=== PATIENT | female | born 1990 | race Caucasian/White ===

== ENCOUNTER 2023-05-20 18:37 | Emergency (ER) | payer SELFPAY ==
[2023-05-20 18:42] VITALS: BP 129/88; PULSE 92; RESP 18; TEMP 36.6; O2SAT 98; BMI 29.3
--- NOTE | 2023-05-20 18:50 | ED_ITS ---
HPI - Nausea/Vomiting/Diarrhea General Chief complaint: Nausea/Vomiting/Diarrhea Stated complaint: vomiting 2 months Time Seen by Provider: 05/20/23 18:50 Source: patient Mode of arrival: walk-in History of Present Illness HPI Narrative: this patient walked here from [facility] to have treatment for nausea and vomiting. She is not ablei keep fluids down much over the last several days. She is . She has not seen an FIELD TECHNICIAN yet. She has one child many years ago and this 1st she's been in a while. She did extremely small amount of spotting today but is not having any abdominal cramping or pain or discomfort. She does not have any diarrhea. She took some by mouth Zofran to a friend. She's not had a urinary symptomatology such as frequency urgency dysuria or hematuria. She's not had back or flank pain. She's not had a fever. She's not on any antibiotics. She hasn't smoked marijuana since she found out she was over a month ago. Related Data Allergies Allergy/AdvReac Type Severity Reaction Status Date / Time No Known Drug Allergies Allergy Verified 05/20/23 18:47 Exam Narrative Exam Narrative: awake alert pleasant historian skin is warm and slightly moist. Cognition and mental status are normal she is a good historian. She denies any abdominal pain. Examination the abdomen there is no peritoneal findings guarding rebound or rigidity is no hepatosplenomegaly. She has no tenderness to palpation any place in the abdomen. The lower extremities show no evidence of any edema or swelling. Respiratory she has no wheezes rales or rhonchi. Heart sounds are normal with no murmur. HEENT shows airway to be normal. Ear nose and throat she has no complaints and appears normal on gross inspection. Constitutional Vital Signs, click to edit/add: Last Vital Signs Temp 97.9 F 05/20/23 18:42 Pulse 92 H 05/20/23 18:42 Resp 18 05/20/23 18:42 BP 129/88 05/20/23 18:42 Pulse Ox 98 05/20/23 18:42 O2 Del Method Room Air 05/20/23 18:42 Course Vital Signs Vital signs: Vital Signs Temperature 97.9 F 05/20/23 18:42 Pulse Rate 92 H 05/20/23 18:42 Respiratory Rate 18 05/20/23 18:42 Blood Pressure 129/88 05/20/23 18:42 Pulse Oximetry 98 05/20/23 18:42 Oxygen Delivery Method Room Air 05/20/23 18:42 Temperature 97.9 F 05/20/23 18:42 Pulse Rate 92 H 05/20/23 18:42 Respiratory Rate 18 05/20/23 18:42 Blood Pressure 129/88 05/20/23 18:42 Pulse Oximetry 98 05/20/23 18:42 Oxygen Delivery Method Room Air 05/20/23 18:42 MDM - Nausea/Vomiting/Diarrhea MDM Narrative Medical decision making narrative: patient presents with history of morning sickness 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 She [id number]. She'll need at least 1 L of fluids. We will rule out urinary tract infection I imbalance or renal dysfunction. She has not seen an FIELD TECHNICIAN yet and should be given the name of our local practitioners to follow up with if she is deemed suitable for outpatient management. She said her last period was in February. She is not really bleeding today and I don't believe she has to have an emergent ultrasound at this time. Case will be turned over to Dr. Vaca Discharge Plan Discharge Chief Complaint: Nausea/Vomiting/Diarrhea Clinical Impression: Hyperemesis gravidarum
--- NOTE | 2023-05-20 18:52 | PC.NURSE ---
pt is 2 months , unsure of exact date of LMP but it was in february. Pt states she has been nauseous and vomiting for about a month, getting worse. states she spotted a small bit yesterday and this morning, but not right now. Pt states she walked from [facility] to [facility].
[2023-05-20] MEDS: ONDANSETRON PF 4 MG/2 ML VIAL IV (19:04)
[2023-05-20] MEDS: 0.9 % SODIUM CHLORIDE 1,000 ML 999 ML IV (19:04)
[2023-05-20 19:36] LABS: Basophils Percent Auto 0.2 % (0.2-2.0); Eosinophils Absolute Auto 0.1 10^3/uL (0.0-0.7); Eosinophils Percent Auto 0.7 % (0.9-7.0); Hematocrit 36.7 % (36.0-48.0); Hemoglobin 12.8 g/dL (12.0-16.0); Immature Granulocytes Abs Auto 0.03 10^3/uL (0.00-0.03); Immature Granulocytes Pct Auto 0.3 % (0.0-0.5); Lymphocytes Absolute Auto 1.7 10^3/uL (1.2-3.8); Lymphocytes Percent Auto 14.1 % (20.5-60.0); Mean Corpuscular HGB Conc 34.9 g/dL (29.9-35.2); Mean Corpuscular Hemoglobin 33.2 pg (26.7-34.0); Mean Corpuscular Volume 95.3 fL (81.0-99.0); Mean Platelet Volume 10.4 fL (9.5-13.5); Monocytes Absolute Auto 0.5 10^3/uL (0.3-0.8); Neutrophils Absolute Auto 9.6 10^3/uL (1.4-6.5); Neutrophils Percent Auto 80.7 % (43.0-75.0); Platelet Count 262 10^3/uL (150-450); Red Blood Count 3.85 10^6/uL (4.20-5.40); White Blood Count 11.9 10^3/uL (4.0-11.0)
[2023-05-20 19:38] LABS: Bilirubin Urine NEGATIVE (NEGATIVE); Blood Urine NEGATIVE (NEGATIVE); Clarity Urine CLOUDY (CLEAR); Color Urine YELLOW (YELLOW); Glucose Urine UA NEGATIVE (NEGATIVE); Ketones Urine TRACE mg/dL (NEGATIVE); Leukocyte Esterase Urine NEGATIVE (NEGATIVE); Nitrite Urine NEGATIVE (NEGATIVE); Protein Urine TRACE mg/dL (NEG/TRACE); Specific Gravity Urine 1.025 (1.005-1.025)
[2023-05-20 19:47] LABS: Anion Gap 14.5; BUN Creatinine Ratio 18.3; Calcium 8.9 mg/dL (8.5-10.1); Carbon Dioxide 22.9 mmol/L (21.0-32.0); Chloride 101 mmol/L (98-107); Estimated GFR (African America >60 (>=60); Estimated GFR (Non-African Ame >60 (>=60); Glucose 86 mg/dL (74-106); Potassium 3.4 mmol/L (3.5-5.1); Sodium 135 mmol/L (136-145)
[2023-05-20 19:48] LABS: Urine Microscopic Indicated NO
== END 2023-05-20 20:53 | disposition home or self-care (01) ==
PROVIDERS: Emergency Medicine Emergency Medical Services; Emergency Provider Internal Medicine
DX: O21.0 Mild hyperemesis gravidarum (principal); Z3A.00 Weeks of gestation of pregnancy not specified
CPT/HCPCS: 36415; 80048; 81003; 85025; 96361; 96374; 99285

== ENCOUNTER 2023-06-26 12:26 | Outpatient (OUT) | payer MEDICAID, SELFPAY ==
--- NOTE | 2023-06-26 12:30 | US_ITS ---
[address] [address] Patient Name: DANA PINO MRN: [id number] date: 1990 Sex: F Assigned Patient Location: US Current Patient Location: Accession/Order Number: [id number] Exam Date: 06/26/2023 12:30 Report Date: 06/26/2023 17:24 At the request of: SARA SALOMON Procedure: US OB >= 14 weeks Fetus EXAMINATION: US OB >= 14 weeks Fetus HISTORY: MISSED MENSES COMPARISON: No relevant comparison available. FINDINGS: Heart Rate: 144.0 bpm Number: 1.0 Amniotic Fluid Volume: Subjectively normal BIOMETRY: BPD: 3.9 cm cm; 18 weeks 0 days HC: 14.2 cmcm; 17 weeks 3 days AC: 12.2 cm cm; 17 weeks 6 days FL: 2.5 cm cm; 17 weeks 3 days EFW: 203.7 grams FL/AC: 20.2 FL/BPD: 62.6 HC/AC: 1.2 GESTATIONAL AGE: Age by EDC: Unknown LMP NINOSKA by EDC: Age by US: 17 weeks 5 days NINOSKA by US: 11/29/2023 US/US OB >= 14 weeks Fetus IMPRESSION: 1. Single live intrauterine 17 weeks 5 days by today's ultrasound. Electronically authenticated by: OLGA DASILVA Date: 06/26/2023 17:24
== END 2023-06-26 12:27 | disposition home or self-care (01) ==
PROVIDERS: Visit Provider Obstetrics & Gynecology
DX: Z34.92 Encounter for supervision of normal pregnancy, unspecified, second trimester (principal); Z3A.17 17 weeks gestation of pregnancy
CPT/HCPCS: 76815

== ENCOUNTER 2023-07-23 12:20 | Outpatient (OUT) | payer MEDICAID, SELFPAY ==
[2023-07-23 12:53] LABS: Estimated Average Glucose 88 mg/dL; Glycohemoglobin A1C 4.7 % (4.5-6.2)
[2023-07-23 12:54] LABS: Basophils Percent Auto 0.3 % (0.2-2.0); Eosinophils Absolute Auto 0.1 10^3/uL (0.0-0.7); Eosinophils Percent Auto 1.2 % (0.9-7.0); Hematocrit 36.1 % (36.0-48.0); Hemoglobin 12.2 g/dL (12.0-16.0); Immature Granulocytes Abs Auto 0.04 10^3/uL (0.00-0.03); Immature Granulocytes Pct Auto 0.3 % (0.0-0.5); Lymphocytes Absolute Auto 1.4 10^3/uL (1.2-3.8); Lymphocytes Percent Auto 12.3 % (20.5-60.0); Mean Corpuscular HGB Conc 33.8 g/dL (29.9-35.2); Mean Corpuscular Hemoglobin 33.1 pg (26.7-34.0); Mean Corpuscular Volume 97.8 fL (81.0-99.0); Mean Platelet Volume 9.5 fL (9.5-13.5); Monocytes Absolute Auto 0.5 10^3/uL (0.3-0.8); Monocytes Percent Auto 4.2 % (1.7-12.0); Neutrophils Absolute Auto 9.6 10^3/uL (1.4-6.5); Neutrophils Percent Auto 81.7 % (43.0-75.0); Platelet Count 275 10^3/uL (150-450); Red Blood Count 3.69 10^6/uL (4.20-5.40); Red Cell Distribution Width 12.2 % (11.0-15.0); White Blood Count 11.7 10^3/uL (4.0-11.0)
[2023-07-23 13:18] LABS: Thyroid Stimulating Hormone 0.774 uIU/mL (0.358-3.740)
[2023-07-24 08:11] LABS: HIV Ab/p24 Ag Screen Non Reactive (Non Reactive)
[2023-07-24 09:11] LABS: Rubella Antibodies, IgG 5.18 index (Immune >0.99)
[2023-07-24 11:12] LABS: Rapid Plasma Reagin, Quant Non Reactive titer (NonRea<1:1)
[2023-07-24 12:12] LABS: HBsAg Screen Negative (Negative); HCV Ab Non Reactive (Non Reactive)
--- OUTSIDE RECORDS SUMMARY | 2023-09-02 14:14 | XMS_ITS | CCD ---
Author Name Unknown Address [address] [place] [address] [address] [place] [address] Organization [facility] Care Team Providers Care Police Stenographer Name Role Phone IRIS ETHAN Primary Care Unavailable EARNESTINE WAKEFIELD Admitting Unavailable ASHU, EARNESTINE Fleming Attending Unavailable EARNESTINE WAKEFIELD Consulting Unavailable ETHAN SIMMONS Primary Care Unavailable PAY, KALI Admitting Unavailable PAY, KALI Attending Unavailable PAY, KALI Consulting Unavailable LE, FLETCHER Admitting Unavailable LE, FLETCHER Attending Unavailable REQUEST, NONE LISTED Primary Care Unavailable JOVANY TAVERAS Consulting Unavailable SIGIFREDO, FLETCHER Consulting Unavailable ASRA SALOMON Attending Unavailable Problems Active Problems Problem Classification Problem Date Documented Da te Episodic/Chronic External cause codes: Natural/environment (1 source) Other and unspecified overexertion or strenuous movements or postures, initial encounter; Translations: [OTH AND UNS OVREXRT/STRN MVMT/POS INT] Onset: 01-26-2019 Other connective tissue disease (3 sources) Pain in left foot; Translations: [PAIN IN LEFT FOOT] Onset: 04-30-2019 Episodic Other connective tissue disease (1 source) Calcaneal spur, right foot; Translations: [CALCANEAL SPUR RIGHT FOOT] Onset: 05-04-2019 Episodic Other connective tissue disease (1 source) Calcaneal spur, left foot; Translations: [CALCANEAL SPUR LEFT FOOT] Onset: 05-04-2019 Episodic Other nervous system disorders (1 source) Paresthesia of skin; Translations: [PARESTHESIA OF SKIN] Onset: 05-04-2019 Episodic Substance-related disorders (1 source) Nicotine dependence, cigarettes, uncomplicated; Translations: [NICOTINE DEPEND CIGARETTES UNCOMP] Onset: 01-26-2019 Chronic Past or Other Problems Problem Classification Problem Date Documented Date Episodic/Chronic Other ear and sense organ disorders (3 sources) Otalgia, right ear; Translations: [OTALGIA RIGHT EAR] Onset: 12-23-2018 Episodic Other non-traumatic joint disorders (4 sources) Pain in left shoulder; Translations: [PAIN IN LEFT SHOULDER] Onset: 01-22-2019 Episodic Otitis media and related conditions (1 source) Unspecified nonsuppurative otitis media, right ear; Translations: [UNS NONSUPPURATIVE OM RT EAR] Onset: 12-24-2018 Episodic Sprains and strains (1 source) Sprain of left acromioclavicular joint, initial encounter; Translations: [SPRAIN LEFT AC JNT INITIAL ENC] Onset: 01-26-2019 Episodic Results Test Name Value Interpretation Reference Range Facil ity POINT OF CARE GLUCOSEon 04-15 Glucose [Mass/Vol] 108 mg/dL Critically high 74-106 T [facility] Comment on above: Performed By: #### P OCGLUC #### [facility] [address] [address] Ney Ayon XR FOOT ANGELA MIN 3 VIEWSon Bilirubin [Mass/Vol] Patient: DARIA PINO Exam Date: 04/30/2019 : 1990 Gender:F Ordering : DR. FLETCHER MEI D.O. Admission #: [id number] Family : Order #: [id number] CLICK HERE TO VIEW EXAM RADIOLOGY REPORT PROCEDURE: RADIOGRAPH FOOT BILATERAL MIN 3 VIEWS COMPARISON: None. INDICATIONS: Chronic bilateral foot pain, no injury RIGHT FINDINGS: BONES: Tiny benign-appearing bone cysts within the head of the 1st metatarsal. No significant arthropathy or acute abnormality. SOFT TISSUES: Negative. No visible soft tissue swelling. OTHER: Negative. LEFT FINDINGS: BONES: Small calcaneal plantar spur No significant arthropathy or acute abnormality SOFT TISSUES: Negative. No visible soft tissue swelling OTHER: Negative. RIGHT CONCLUSION: No acute bone abnormality or significant degenerative changes to account for the patient's symptoms. LEFT CONCLUSION: No acute bone abnormality or significant degenerative changes to account for the patient's symptoms. Dictated by: Jovany Taveras M.D. on 04/30/2019 at 08:28 Approved by: Jovany Taveras M.D. on 04/30/2019 at 08:30 Normal [facility] Encounters Encounter Date Encounter Type Care Provider Facility Start: 2023 End: 2023 ambulatory SARA SALOMON Not Available Start: 04-30-2019 End: 04-30-2019 Patient encounter procedure FLETCHER MEI Facility:[facility] Start: 01-22-2019 End: 01-22-2019 Patient encounter procedure ETHAN SIMMONS Facility:[facility] Start: 12-23-2018 End: 12-23-2018 Patient encounter procedure ETHAN SIMMONS Facility:[facility] Payers Date Payer Category Payer Medicaid [id number] 1990 Unknown [id number] [id number] [id number] 1990 Unknown [id number] 2.16.84 [id number] 1990 Unknown [id number] 2.16.84 [id number] 1990 Unknown [id number] 1959 Self-pay [id number] 1959 Self-pay Summary Purpose Family History No Family History Records FoundNo Family History Records Found Advance Directives No Advanced Directives Records FoundNo Advanced Directives Records Found Additional Source Comments INFORMATION SOURCE (unrecogn ized section and content) DATE CREATED AUTHOR 05/04/2019 [facility] DATE CREATED AUTHOR 'S LESLIEIZ ATCARMEN 08/23/2023 [facility] EPIC FOR RECORDS PERTAINING TO PATIENTS WHO ARE OR HAVE BEEN ENROLLED IN A CHEMICAL DEPENDENCY/SUBSTANCEABUSE PROGRAM, SOME INFORMATION MAY BE OMITTED. This clinical summary was aggregated from multiple sources. Caution should be exercised in using it in the provision of clinical care. This summary normalizes information from multiple sources, and as a consequence, information in this document may materially change the coding, format and clinical context of patient data. In addition, data may be omitted in some cases. CLINICAL DECISIONS SHOULD BE BASED ON THE PRIMARY CLINICAL RECORDS. [facility]. provides no warranty or guarantee of the accuracy or completeness of information in this document.
== END 2023-07-23 12:21 | disposition home or self-care (01) ==
LOC: LAB 12:23
PROVIDERS: Visit Provider Obstetrics & Gynecology
DX: N92.6 Irregular menstruation, unspecified (principal)
CPT/HCPCS: 36415; 83036; 84443; 85025; 86592; 86762; 86803; 86850; 86900; 86901; 87086; 87340; 87389

== ENCOUNTER 2023-07-24 08:46 | Outpatient (OUT) | payer MEDICAID, SELFPAY ==
--- NOTE | 2023-07-24 08:47 | US_ITS ---
[address] [address] Patient Name: DANA PINO MRN: [id number] date: 1990 Sex: F Assigned Patient Location: US Current Patient Location: Accession/Order Number: [id number] Exam Date: 07/24/2023 08:48 Report Date: 07/24/2023 22:37 At the request of: SARA SALOMON Procedure: US OB anatomy EXAMINATION: US OB anatomy, US OB cervical length HISTORY: ANATOMY COMPARISON: No relevant comparison available. TECHNIQUE: Transabdominal sonographic examination was performed for obstetrical and evaluation. FINDINGS: Number: 1 Heart Rate: 145.0 bpm H.B. /min Amniotic Fluid Volume: Subjectively normal Placental Location: POSTERIOR with lower margin 3.9 cm from os Cervix Length: 4.4 cm; closed. ANATOMY: Normal Structures -cerebellum, choroid plexus, cisterna magna, lateral cerebral ventricles, orbits, midline falx, hard palate, four-chamber heart, RVOT, LVOT, stomach, kidneys, bladder, umbilical cord insertion into abdomen, three-vessel cord, cervical spine, thoracic spine, lumbar spine, sacral spine, right upper extremity, left upper extremity, right lower extremity, left lower extremity. SUBOPTIMALLY SEEN: None ABNORMALITIES: None BIOMETRY: BPD: 4.6 cm 19 weeks 5 days ; < 3% HC: 18.0 cm 20 weeks 3 days; 3% AC: 16.3 cm 21 weeks 3 days; 32% FL: 3.6 cm 21 weeks 2 days ; 25% EFW:405.2 grams; 20% FL/AC: 21.8 FL/BPD: 78.2 HC/AC: 1.1 GESTATIONAL AGE: Age by EDC: 21 weeks 5 days NINOSKA by EDC: 11/29/2023 Age by current US: 20 weeks 5 days NINOSKA by current US: 12/06/2023 US/US OB anatomy IMPRESSION: 1. Single live intrauterine with growth detailed above. 2. BPD and HC are < or equal to 3rd percentile. Electronically authenticated by: OLGA DASILVA Date: 07/24/2023 22:37
--- NOTE | 2023-07-24 08:47 | US_ITS ---
[address] [address] Patient Name: DANA PINO MRN: [id number] date: 1990 Sex: F Assigned Patient Location: US Current Patient Location: Accession/Order Number: [id number] Exam Date: 07/24/2023 08:48 Report Date: 07/24/2023 22:37 At the request of: SARA SALOMON Procedure: US OB cervical length EXAMINATION: US OB anatomy, US OB cervical length HISTORY: ANATOMY COMPARISON: No relevant comparison available. TECHNIQUE: Transabdominal sonographic examination was performed for obstetrical and evaluation. FINDINGS: Number: 1 Heart Rate: 145.0 bpm H.B. /min Amniotic Fluid Volume: Subjectively normal Placental Location: POSTERIOR with lower margin 3.9 cm from os Cervix Length: 4.4 cm; closed. ANATOMY: Normal Structures -cerebellum, choroid plexus, cisterna magna, lateral cerebral ventricles, orbits, midline falx, hard palate, four-chamber heart, RVOT, LVOT, stomach, kidneys, bladder, umbilical cord insertion into abdomen, three-vessel cord, cervical spine, thoracic spine, lumbar spine, sacral spine, right upper extremity, left upper extremity, right lower extremity, left lower extremity. SUBOPTIMALLY SEEN: None ABNORMALITIES: None BIOMETRY: BPD: 4.6 cm 19 weeks 5 days ; < 3% HC: 18.0 cm 20 weeks 3 days; 3% AC: 16.3 cm 21 weeks 3 days; 32% FL: 3.6 cm 21 weeks 2 days ; 25% EFW:405.2 grams; 20% FL/AC: 21.8 FL/BPD: 78.2 HC/AC: 1.1 GESTATIONAL AGE: Age by EDC: 21 weeks 5 days NINOSKA by EDC: 11/29/2023 Age by current US: 20 weeks 5 days NINOSKA by current US: 12/06/2023 US/US OB cervical length IMPRESSION: 1. Single live intrauterine with growth detailed above. 2. BPD and HC are < or equal to 3rd percentile. Electronically authenticated by: OLGA DASILVA Date: 07/24/2023 22:37
== END 2023-07-24 08:47 | disposition home or self-care (01) ==
PROVIDERS: Visit Provider Obstetrics & Gynecology
DX: Z36.89 Encounter for other specified antenatal screening (principal); Z3A.21 21 weeks gestation of pregnancy
CPT/HCPCS: 76805; 76817

== ENCOUNTER 2023-08-02 14:50 | Outpatient (OUT) | payer MEDICAID, SELFPAY ==
[2023-08-02 15:14] VITALS: BP 108/72; PULSE 70
[2023-08-02] MEDS: ONDANSETRON 4 MG RAPDIS TABLET SL (16:26)
[2023-08-02 16:40] LABS: Bilirubin Urine NEGATIVE (NEGATIVE); Blood Urine SMALL (NEGATIVE); Color Urine LT. YELLOW (YELLOW); Glucose Urine UA NEGATIVE (NEGATIVE); Ketones Urine NEGATIVE (NEGATIVE); Leukocyte Esterase Urine NEGATIVE (NEGATIVE); Nitrite Urine NEGATIVE (NEGATIVE); Protein Urine NEGATIVE (NEG/TRACE); Urobilinogen Urine 0.2 EU/dL (0.2-1.0)
[2023-08-02 16:42] LABS: Clarity Urine SLIGHTLY CLOUDY (CLEAR); Urine Microscopic Indicated YES
[2023-08-02 16:47] LABS: Bacteria Urine NONE SEEN #/HPF (NONE SEEN); Cast Seen? NONE SEEN #/LPF (NONE SEEN); Crystals Seen? None Seen #/HPF (None Seen); Mucus Urine NONE SEEN (NONE SEEN); RBC Urine 0-2 #/HPF (0-2); Squamous Epithelial Cell Urine RARE #/LPF (NONE/RARE); WBC Urine NONE SEEN #/HPF (NONE SEEN)
[2023-08-02 16:48] LABS: Amorphous Sediment Urine MODERATE; Urine Culture Indicated NO
--- NOTE | 2023-08-02 16:55 | PC.NURSE ---
1650- Instructed patient to bulk picker Zofran from [facility] that was called in for her. Questions answered, patient states understanding.
== END 2023-08-02 16:55 | disposition home or self-care (01) ==
LOC: FBCO 14:53 → FBC 14:58
PROVIDERS: Visit Provider Obstetrics & Gynecology
DX: O26.899 Other specified pregnancy related conditions, unspecified trimester (principal); R42 Dizziness and giddiness; O21.0 Mild hyperemesis gravidarum; Z3A.00 Weeks of gestation of pregnancy not specified
CPT/HCPCS: 59025; 81001

== ENCOUNTER 2023-08-21 19:59 | Outpatient (REF) | payer MEDICAID, SELFPAY ==
[2023-08-26 17:09] LABS: Age Gdln ACOG Testing Note (.); HPV Aptima Negative (Negative); IGP, Aptima HPV, rfx 16/18,45 Note (.)
== END 2023-08-21 20:00 | disposition home or self-care (01) ==
LOC: LAB 19:59
PROVIDERS: Visit Provider Obstetrics & Gynecology
DX: Z01.419 Encounter for gynecological examination (general) (routine) without abnormal findings (principal)
CPT/HCPCS: 87624; G0145

== ENCOUNTER 2023-09-12 13:02 | Outpatient (OUT) | payer MEDICAID, SELFPAY ==
--- OUTSIDE RECORDS SUMMARY | 2023-09-12 13:05 | XMS_ITS | CCD ---
Author Name Unknown Address [address] [place] [address] [address] [place] [address] Organization [facility] Care Team Providers Care Accounting Methods Analyst Name Role Phone ETHAN SIMMONS Primary Care Unavailable EARNESTINE WAKEFIELD Admitting Unavailable ASHU, EARNESTINE Fleming Attending Unavailable ASHU, EARNESTINE Fleming Consulting Unavailable ETHAN SIMMONS Primary Care Unavailable PAY, KALI Admitting Unavailable PAY, KALI Attending Unavailable PAY, KALI Consulting Unavailable LE, FLETCHER Admitting Unavailable LE, FLETCHER Attending Unavailable REQUEST, NONE LISTED Primary Care Unavailable JOVANY TAVERAS Consulting Unavailable SIGIFREDO, FLETCHER Consulting Unavailable SARA SALOMON Attending Unavailable NAZARIO LEOS Attending Unavailable Problems Active Problems Problem Classification [...] Test Name Value Interpretation Reference Range Facil it POINT OF CARE GLUCOSEon 04-15 Glucose [Mass/Vol] 108 mg/dL Critically high 74-106 [facility] Comment on above: Performed By: #### P OCGLUC #### [facility] [address] [place], [place] [address] Ney Ayon XR FOOT ANGELA MIN 3 VIEWSon Bilirubin [Mass/Vol] Patient: DANA PINO Exam Date: 04/30/2019 : 1990 Gender:F Ordering : DR. FLETCHER MEI D.O. Admission #: [id number] Family : Order #: [id number] CLICK HERE TO VIEW EXAM RADIOLOGY REPORT [...] on 04/30/2019 at 08:30 Normal [facility] Encounters Encounter Date Encounter Type Care Provider Facility Start: 09-04-2023 End: 09-04-2023 ambulatory NAZARIO LEOS Not Available Start: 2023 End: 2023 ambulatory SARA SALOMON Not Available Start: 04-30-2019 End: 04-30-2019 Patient encounter procedure FLETCHER MEI Facility:[facility] Start: 01-22-2019 End: 01-22-2019 Patient encounter procedure ETHAN SIMMONS Facility:[facility] Start: 12-23-2018 End: 12-23-2018 Patient encounter procedure ETHAN PAVLOCK Facility:[facility]1 Payers Date Payer Category Payer Medicaid [id number] 1990 Unknown [id number] 2.16.84 [id number] 1990 Unknown [id number] 2.16.84 [id number] 1990 Unknown [id number] 2.16.84 [id number] 1990 Unknown [id number] 1990 Unknown [id number] 1959 Self-pay [id number] 1959 Self-pay Summary Purpose Family History No Family History Records FoundNo Family History Records Found Advance Directives No Advanced Directives Records FoundNo Advanced Directives Records Found Additional Source Comments INFORMATION SOURCE (unrecogn ized section and content) DATE CREATED AUTHOR 05/04/2019 [facility] DATE CREATED AUTHOR AUTHOR'S ORGANIZ ATION 09/05/2023 [facility] EPIC FOR RECORDS PERTAINING TO PATIENTS [...] BE BASED ON THE PRIMARY CLINICAL RECORDS. [facility]. provides no warranty or guarantee of the accuracy or completeness of information in this document.
[2023-09-12 13:18] LABS: Glucose Fasting 81 mg/dL (74-106)
[2023-09-12 14:32] LABS: Glucose 1 Hour 155 mg/dL
[2023-09-12 15:36] LABS: Glucose 2 Hour 143 mg/dL
[2023-09-12 16:34] LABS: Glucose 3 Hour 143 mg/dL
== END 2023-09-12 13:03 | disposition home or self-care (01) ==
LOC: LAB 13:02
PROVIDERS: Visit Provider Obstetrics & Gynecology
DX: E74.39 Other disorders of intestinal carbohydrate absorption (principal)
CPT/HCPCS: 36415; 82951; 82952

== ENCOUNTER 2023-10-22 14:34 | Outpatient (OUT) | payer MEDICAID, SELFPAY ==
--- NOTE | 2023-10-22 14:36 | US_ITS ---
[address] [address] Patient Name: DANA PINO MRN: [id number] date: 1990 Sex: F Assigned Patient Location: [facility] Current Patient Location: [facility] Accession/Order Number: [id number] Exam Date: 10/22/2023 14:36 Report Date: 10/22/2023 16:08 At the request of: SARA SALOMON Procedure: US OB growth EXAMINATION: US OB growth HISTORY: LGA COMPARISON: 07/24/2023 FINDINGS: Heart Rate: 127.0 bpm Amniotic Fluid Volume: 10.9 cm Number: 1.0 Position: Cephalic presentation, longitudinal lie Maximum Vertical Pocket: 2.2 cm cm 2.6 cm cm 4.4 cm cm 1.7 cm cm BIOMETRY: BPD: 8.5 cm cm; 34 weeks 0 days; 34% HC: 29.9 cmcm; 33 weeks 1 days < 3% AC: 30.0 cm cm; 34 weeks 0 days, 36% FL: 6.7 cm cm; 34 weeks 3 days; 38.4 % % EFW: 2327.3 grams FL/AC: 22.4 FL/BPD: 79.3 HC/AC: 1.0 GESTATIONAL AGE: Age by EDC: 34 weeks 4 days NINOSKA by EDC: 11/29/2023 Age by US: 33 weeks 6 days NINOSKA by US: 12/04/2023 US/US OB growth IMPRESSION: Head circumference less than the 3rd percentile, otherwise normal interval growth Electronically authenticated by: CARLOS MAZARIEGOS Date: 10/22/2023 16:08
--- OUTSIDE RECORDS SUMMARY | 2023-10-22 14:41 | XMS_ITS | CCD ---
Author Name Unknown Address [address] [place] [address] [address] [place] [address] Organization [facility] Care Team Providers Care Plodder Operator Name Role Phone ETHAN SIMMONS Primary Care Unavailable EARNESTINE WAKEFIELD Admitting Unavailable ASHU, EARNESTINE Fleming Attending Unavailable EARNESTINE WAKEFIELD Consulting Unavailable ETHAN SIMMONS Primary Care Unavailable PAY, KALI Admitting Unavailable PAY, KALI Attending Unavailable PAY, KALI Consulting Unavailable LE, FLETCHER Admitting Unavailable LE, FLETCHER Attending Unavailable REQUEST, NONE LISTED Primary Care Unavailable JOVANY TAVERAS Consulting Unavailable SIGIFREDO, FLETCHER Consulting Unavailable NAZARIO LEOS Attending Unavailable UMM, SARA Attending Unavailable UMM, SARA Attending Unavailable NAZARIO LEOS Attending Unavailable Problems [...] Glucose [Mass/Vol] 108 mg/dL Critically high 74-106 [facility] Comment on above: Performed By: #### P OCGLUC #### [facility] [address] [address] [place] Ayon XR FOOT ANGELA MIN 3 VIEWSon Bilirubin [Mass/Vol] Patient: DANA PINO Exam Date: 04/30/2019 : 1990 Gender:F Ordering : DR. FLETCHER MEI D.O. Admission #: [id number] Family : Order #: [id number] CLICK HERE TO VIEW EXAM RADIOLOGY REPORT [...] Taveras M.D. on 04/30/2019 at 08:30 Normal [facility] Encounters Encounter Date Encounter Type Care Provider Facility Start: 10-06-2023 End: 10-06-2023 ambulatory SARA SALOMON Not Available Start: 09-18-2023 End: 09-18-2023 ambulatory NAZARIO LEOS Not Available Start: 09-04-2023 End: 09-04-2023 ambulatory NAZARIO LEOS Not Available Start: 2023 End: 2023 ambulatory SARA SALOMON Not Available Start: 04-30-2019 End: 04-30-2019 Patient encounter procedure FLETCHER MEI Facility:[facility] Start: 01-22-2019 End: 01-22-2019 Patient encounter procedure MAX PAVLOCK Facility:[facility] Start: 12-23-2018 End: 12-23-2018 Patient encounter procedure MAX PAVLOCK Facility:[facility]1 Payers Date Payer Category Payer Medicaid [id number] 1990 Unknown [id number] 2.16.84 [id number] 1990 Unknown [id number] 2.16.84 [id number] 1990 Unknown [id number] 2.16.84 [id number] 1990 Unknown [id number] 2.16.84 [id number] 1990 Unknown [id number] 2.16.840 .[id number] 1990 Unknown [id number] 2.16.840 .[id number] 1990 Unknown [id number] 1959 Self-pay [id number] 1959 Self-pay Summary Purpose Family History No Family History Records FoundNo Family History Records Found Advance Directives No Advanced Directives Records FoundNo Advanced Directives Records Found Additional Source Comments INFORMATION SOURCE (unrecogn ized section and content) DATE CREATED AUTHOR 05/04/2019 [facility] DATE CREATED AUTHOR AUTHOR'S ORGANIZ ATION 10/07/[address] [facility] FOR RECORDS PERTAINING TO PATIENTS WHO ARE [...] BE BASED ON THE PRIMARY CLINICAL RECORDS. [facility]. provides no warranty or guarantee of the accuracy or completeness of information in this document.
== END 2023-10-22 14:35 | disposition home or self-care (01) ==
LOC: NOMS 14:35
PROVIDERS: Visit Provider Obstetrics & Gynecology
DX: O36.63X1 Maternal care for excessive fetal growth, third trimester, fetus 1 (principal); Z3A.34 34 weeks gestation of pregnancy
CPT/HCPCS: 76816

== ENCOUNTER 2023-11-05 | Outpatient (REF) | payer MEDICAID, SELFPAY ==
--- OUTSIDE RECORDS SUMMARY | 2023-11-06 10:26 | XMS_ITS | CCD ---
Author Name Unknown Address [facility] [address] [place] [id number] Organization [facility] Care Team Providers Care Pai Gow Manager Name Role Phone ETHAN SIMMONS Primary Care Unavailable EARNESTINE WAKEFIELD Admitting Unavailable ASHU, EARNESTINE Fleming Attending Unavailable ASHU, EARNESTINE Fleming Consulting Unavailable ETHAN SIMMONS Primary Care Unavailable PAY, KALI Admitting Unavailable PAY, KALI Attending Unavailable PAY, KALI Consulting Unavailable SIGIFREDO, FLETCHER Admitting Unavailable LE, FLETCHER Attending Unavailable REQUEST, NONE LISTED Primary Care Unavailable JOVANY TAVERAS Consulting Unavailable SIGIFREDO, FLETCHER Consulting Unavailable CRYS LEOS Attending Unavailable SARA SALOMON Attending Unavailable CRYS LEOS Attending Unavailable UMM, SARA Attending Unavailable CRYS LEOS Attending Unavailable Unavailable Primary Care Provider Unavailabl e Medications Current Medications Medication Drug Class(es) Dates Sig (Normalized) Sig (Original) metoclopramide 10 mg oral tablet (2 sources) Dopamine-2 Receptor Antagonist Start: 09-18-2023 End: 12-17-2023 metoclopramide (Reglan) 10 MG tablet Indications: Nausea Take 1 tablet (10 mg) by mouth in the morning and 1 tablet (10 mg) at noon and 1 tablet (10 mg) in the evening. Take before meals. Take 1 tablet by mouth 30 minutes prior to meals 3 times daily as needed for nausea.. 90 tablet 2 09/18/2023 12/17/2023 Active ondansetron 4 mg disintegrating oral tablet (2 sources) Serotonin-3 Receptor Antagonist Start: 09-18-2023 ondansetron ODT (Zofran-ODT) 4 MG disintegrating tablet Indications: Nausea DISSOLVE 1 TABLET ON THE TONGUE EVERY 6 HOURS NEEDED FOR NAUSEA 20 tablet 3 09/18/2023 Active MV-Min-Fe Fum-FA-DHA ( 1 PO) (2 sources) MV-Min- Fe Fum-FA-DHA ( 1 PO) Take by mouth. 0 Active promethazine hydrochloride 25 mg oral tablet (2 sources) Phenothiazine Start: 05-21-2023 promethazine (Phenergan) 25 MG tablet TAKE 1 TABLET 4 TIMES A DAY NEEDED 0 05/21/2023 Active Completed/Discontinued Medications Medication Drug Class(es) Dates Sig (Normalized) Sig (Original) cyclobenzaprine hydrochloride 10 mg oral tablet (2 sources) Muscle Relaxant Start: 2023 End: 10-22-2023 take 0.5 tablet by mouth three times daily as needed for muscle spasms cyclobenzaprine (Flexeril) 10 MG tablet Indications: Chronic bilateral low back pain without sciatica Take 0.5 tablets (5 mg) by mouth 3 (three) times a day as needed for muscle spasms for up to 10 days 15 tablet 0 2023 10/22/2023 Discontinued Problems Active Problems Problem Classification Problem Date [...] Translations: [PARESTHESIA OF SKIN] Onset: 05-04-2019 Episodic Other and delivery including normal (2 sources) Third trimester ; Translations: [Encounter for supervision of normal , unspecified, third trimester] 10-17-2023 Episodic Substance-related disorders (1 source) Nicotine dependence, [...] Name Value Interpretation Reference Range Facil ity Urinalysis macro (dipstick) panel (U)on 10-22-2023 Bilirubin, UA Negative Negative - 4(70) +++ mg/dL [facility] Blood, UA Negative Negative - 50 Junior/mcL [facility] Clarity, UA Clear [facility], UA Yellow [facility] Glucose, UA Negative Negative - 1999(110) ++++ mg/dL [facility] Interpretation and review of laboratory results Abnormal [facility] Ketones, UA Negative Negative - 160(16) ++++ mg/dL [facility] Leukocytes, UA Negative Negative - 500+++ Juli/mcL [facility] Nitrite, UA Negative Negative - Positive [facility] pH, UA 7.0 5 - 9 [facility] Protein, UA Trace Negative - 1999(20) ++++ mg/dL [facility] Spec Grav, UA 1.025 1 - 1.03 [facility] care Urobilinogen, UA 1.0 0.2 - 12 [facility]dL [facility] POINT OF CARE GLUCOSEon 04-15 Glucose [Mass/Vol] 108 mg/dL Critically high 74-106 [facility] Comment on above: Performed By: #### P OCGLUC #### [facility] [address] [address] Ney Ayon XR FOOT ANGELA MIN 3 VIEWSon Bilirubin [Mass/Vol] Patient: DANA JONES Exam Date: 04/30/2019 : 1990 Gender:F Ordering : DR. FLETCHER MEI D.O. Admission #: [id number] Family : Order #: [id number] CLICK HERE TO VIEW EXAM RADIOLOGY REPORT [...] Taveras M.D. on 04/30/2019 at 08:30 Normal [facility] Vital Signs Date Time Vital Sign Value Performing Clinician Faci lity 10-22-2023 15:07-0500 Body mass index (BMI) [Ratio] 32.75 kg/m2 Crys BUSTAMANTE Work Phone: [facility] 10-22-2023 15:07-0500 Body weight 89.27 kg Crys BUSTAMANTE Work Phone: [facility] 10-22-2023 15:07-0500 Diastolic blood pressure 60 mm[Hg] Crys BUSTAMANTE Work Phone: [facility] 10-22-2023 15:07-0500 Systolic blood pressure 120 mm[Hg] Crys BUSTAMANTE Work Phone: [facility] Healthcare Encounters Encounter Date Encounter Type Care Provider Facility Start: 10-22-2023 End: 10-22-2023 ambulatory CRYS LEOS Not Available Start: 10-22-2023 End: 10-22-2023 Office outpatient visit 15 minutes Crys BUSTAMANTE Work Phone: [facility] Comment on above: Third trimester preg jessica Start: 10-06-2023 End: 10-06-2023 ambulatory SARA UMM Not Available Start: 09-18-2023 End: 09-18-2023 ambulatory CRYS LEOS Not Available Start: 09-04-2023 End: 09-04-2023 ambulatory CRYS LEOS Not Available Start: 2023 End: 2023 ambulatory SARA HERNANDEZO Not Available Start: 04-30-2019 End: 04-30-2019 Patient encounter procedure FLETCHER MEI Facility:[facility]1 Start: 01-22-2019 End: 01-22-2019 Patient encounter procedure MAX PAVMATILDE Facility:[facility]1 Start: 12-23-2018 End: 12-23-2018 Patient encounter procedure MAX PAVLOCK Facility:[facility]1 Procedures Date Procedure Procedure Detail Performing Clinician Start: 10-22-2023 Urnls dip stick/tabl et rgnt non-auto w/o micrscp Crys Leos PA Work Phone: Payers Date Payer Category Payer Medicaid [id number] 2023 Medicaid [employer] [place] [employer] [place] [id number] 2023-Present [address] [address] [place] [address] [id number] 1990 Unknown [id number] 1990 Unknown [id number] 1990 Unknown [id number] [id number] 1990 Unknown [id number] 2.16.840.1.362977.3.579.2.1259 1990 Unknown [id number] 2.16.840.1.821832.3.579.2.1259 1990 Unknown [id number] 2.16.840.1.075140.3.579.2.1259 1990 Unknown [id number] 1990 Unknown [id number] 1959 Self-pay [id number] 1959 Self-pay Social History Date Type Detail Facility Start: 07-11-2023 Tobacco smoking stat [facility] Never smoked tobacco [facility] Start: 10-22-2023 Alcohol intake Lifetime non-d norberto (finding) [facility] Start: 07-11-2023 History of Social function [facility] Start: 07-11-2023 Tobacco use panel [facility] Start: 03-08-2023 [facility] Start: 1990 Sex Assigned At Not on file [facility] History of Present illness Narrative 10-22-2023 DIANNA Sanchez - 10/22/2023 2:50 PM EST Note Date & Type Note Facility 10-22-2023 History of Presen t illness Narrative Reason for Appointment: Patient ID: Dana Jones is a 33 y.o. female who presents for Routine Visit Patient presents today for Return OB appointment. Current Medications: has a current medication list which includes the following prescription(s): metoclopramide, ondansetron odt, mv-min-fe fum-fa-dha, and promethazine. Medical History: Active Ambulatory Problems Diagnosis Date Noted No Active Ambulatory Problems Resolved Ambulatory Problems Diagnosis Date Noted No Resolved Ambulatory Problems Past Medical History: Diagnosis Date Asthma ([facility]) Family History Problem Relation Name Age of Onset Kidney failure Mother Pyloric stenosis Nephew Social History Tobacco Use Smoking status: Never Smokeless tobacco: Not on file Substance Use Topics Alcohol use: Never Drug use: Not on file Past Surgical History: Procedure Laterality Date HERNIA REPAIR No Known Allergies Review of Systems: Review of Systems Constitutional: Negative. HENT: Negative. Eyes: Negative. Respiratory: Negative. Cardiovascular: Negative. Gastrointestinal: Negative. Genitourinary: Negative. Musculoskeletal: Negative. Skin: Negative. Neurological: Negative. All other systems reviewed and are negative. Hematological: Negative. Endocrine: Negative. Allergic/Immunologic: Negative. Objective Physical Exam Constitutional: Appearance: Normal appearance. She is normal weight. HENT: Head: Normocephalic. Cardiovascular: Rate and Rhythm: Normal rate. Pulses: Normal pulses. Pulmonary: Effort: Pulmonary effort is normal. Breath sounds: Normal breath sounds. Abdominal: Palpations: Abdomen is soft. Musculoskeletal: General: Normal range of motion. Neurological: General: No focal deficit present. Mental Status: She is alert and oriented to person, place, and time. Psychiatric: Mood and Affect: Mood normal. Behavior: Behavior normal. Thought Content: Thought content normal. Judgment: Judgment normal. Vitals and nursing note reviewed. Vitals: Estimated body mass index is 32.75 kg/m as calculated from the following: Height as of 02/18/22: 5' 5 . Weight as of this encounter: 196 lb 12.8 oz. BP: 120/60 No LMP recorded. Patient is . Assessment/Plan Encounter Diagnosis Name Primary? Third trimester Patient presents today for a routine obstetrics appointment. Patient is currently 34w4d with a Estimated Date of Delivery: 11/29/23. Patient presents today for a routine obstetrics appointment. Patient is currently 34w4d . Patient states she is doing well but has complaints of being tired due to current . Patient has verbalizes frequent movement. labor precautions was discussed/given and patient was instructed to perform kick counts three times a day. Follow Up: Patient is to return to office in 2 week for routine OB appointment. Documented by DIANNA Sanchez on behalf of: DIANNA Sanchez documented in this encounter [facility] Evaluation note Note Date & Type Note Facility Evaluation note Diagnosis Third trimester state, incidental documented in this encounter [facility] Summary Purpose Family History No Family History Records FoundNo Family History Records Found Advance Directives No Advanced Directives Records FoundNo Advanced Directives Records Found Additional Source Comments INFORMATION SOURCE (unrecogn ized section and content) DATE CREATED AUTHOR 05/04/2019 [facility] DATE CREATED AUTHOR AUTHOR'S PAYAL ALBERT 10/23/2023 [facility] EPIC Reason for Visit (unrecogniz ed section and content) Reason Comments Routine Visit FOR RECORDS PERTAINING TO PATIENTS WHO ARE [...] BE BASED ON THE PRIMARY CLINICAL RECORDS. [facility]. provides no warranty or guarantee of the accuracy or completeness of information in this document.
== END 2023-11-05 00:01 | disposition home or self-care (01) ==
LOC: LAB
PROVIDERS: Visit Provider Obstetrics & Gynecology
DX: Z34.93 Encounter for supervision of normal pregnancy, unspecified, third trimester (principal)
CPT/HCPCS: 87081

== ENCOUNTER 2023-11-21 23:04 | Observation (INO) | payer MEDICAID, SELFPAY ==
--- OUTSIDE RECORDS SUMMARY | 2023-11-21 23:08 | XMS_ITS | CCD ---
Author Name Unknown Address [address] [place] [address] [place] [address] Organization [facility] Care Team Providers Care Sybase Developer Name Role Phone ETHAN SIMMONS Primary Care Unavailable ASHU, EARNESTINE Fleming Admitting Unavailable ASHU, EARNESTINE Fleming Attending Unavailable ASHU, EARNESTINE Fleming Consulting Unavailable ETHAN SIMMONS Primary Care Unavailable PAY, KALI Admitting Unavailable PAY, KALI Attending Unavailable PAY, KALI Consulting Unavailable SIGIFREDO, FLETCHER Admitting Unavailable LE, FLETCHER Attending Unavailable REQUEST, NONE LISTED Primary Care Unavailable JOVANY TAVERAS Consulting Unavailable SIGIFREDO, FLETCHER Consulting Unavailable Unavailable Primary Care Provider UnavailCRYS Keen Attending Unavailable UMM, SARA Attending Unavailable CRYS LEOS Attending Unavailable UMM, SARA Attending Unavailable UMM, SARA Attending Unavailable UMM, SARA Attending Unavailable UMM, SARA Attending Unavailable CRYS LEOS Attending Unavailable Medications Current Medications Medication Drug Class(es) Dates [...] UA Negative Negative - 4(70) +++ mg/dL [facility] Blood, UA Negative Negative - 50 Junior/mcL [facility] Clarity, UA Clear [facility] Color, UA Yellow [facility] Glucose, UA Negative Negative - 1999(110) ++++ mg/dL [facility] Interpretation and review of laboratory results Abnormal [facility] Ketones, UA Negative Negative - 160(16) ++++ mg/dL [facility] Leukocytes, UA Negative Negative - 500+++ Juli/mcL [facility] Nitrite, UA Negative Negative - Positive [facility] pH, UA 7.0 5 - 9 [facility] Health[facility] Protein, UA Trace Negative - 2000(20) ++++ mg/dL [facility] Spec Grav, UA 1.025 1 - 1.03 [facility] care Urobilinogen, UA 1.0 0.2 - 12 mg/dL [facility] POINT OF CARE GLUCOSEon 04-15 Glucose [Mass/Vol] 108 mg/dL Critically high 74-106 [facility] Comment on above: Performed By: #### P OCGLUC #### [facility] [address] [address] Ney Ayon XR FOOT ANGELA MIN 3 VIEWSon Bilirubin [Mass/Vol] Patient: DANA JONES Exam Date: 04/30/2019 : 1990 Gender:F Ordering : DR. FLETCHER MEI D.O. Admission #: [id number] Family : Order #: [id number] CLICK HERE TO VIEW EXAM RADIOLOGY REPORT [...] Taveras M.D. on 04/30/2019 at 08:30 Normal [facility] Vital Signs Date Time Vital Sign Value Performing Clinician Faci lity 10-22-2023 15:07-0500 Body mass index (BMI) [Ratio] 32.75 kg/m2 Crys BUSTAMANTE Work Phone: [facility] 10-22-2023 15:07-0500 Body weight 89.27 kg Crys BUSTAMANTE Work Phone: [facility] 10-22-2023 15:07-0500 Diastolic blood pressure 60 mm[Hg] Crys BUSTAMANTE Work Phone: [facility] 10-22-2023 15:07-0500 Systolic blood pressure 120 mm[Hg] Crys BUSTAMANTE Work Phone: [facility] Healthcare Encounters Encounter Date Encounter Type Care Provider Facility Start: 11-19-2023 End: 11-19-2023 ambulatory SARA UMM Not Available Start: 11-12-2023 End: 11-12-2023 ambulatory SARA UMM Not Available Start: 11-05-2023 End: 11-05-2023 ambulatory SARA UMM Not Available Start: 10-22-2023 End: 10-22-2023 ambulatory CRYS LEOS Not Available Start: 10-22-2023 End: 10-22-2023 Office outpatient visit 15 minutes Crys BUSTAMANTE Work Phone: [facility] Comment on above: Third trimester preg jessica Start: 10-06-2023 End: 10-06-2023 ambulatory SARA UMM Not Available Start: 09-18-2023 End: 09-18-2023 ambulatory CRYS WHITLEYEY Not Available Start: 09-04-2023 End: 09-04-2023 ambulatory CRYS LEOS Not Available Start: 2023 End: 2023 ambulatory SARA UMM Not Available Start: 04-30-2019 End: 04-30-2019 Patient encounter procedure FLETCHER MEI Facility:[facility]1 Start: 01-22-2019 End: 01-22-2019 Patient encounter procedure ETHAN SNIDERMATILDE Facility:[facility] Start: 12-23-2018 End: 12-23-2018 Patient encounter procedure MAX PAVLOCK Facility:[facility] Procedures Date Procedure Procedure Detail Performing Clinician Start: 10-22-2023 Urnls dip stick/tabl et rgnt non-auto w/o micrscp Crys BUSTAMANTE Work Phone: Payers Date Payer Category Payer Medicaid [employer] [employer] [place] [id number] 2023-Present [address] [address] [place] [address] [id number] 2023 Medicaid [id number] 1990 Unknown [id number] [id number] 1990 Unknown [id number] [id number] 1990 Unknown [id number] 2.840.1.761490.3.579.2.593 1990 Unknown [id number] 2.16.840.1.755236.3.579.2.9 1990 Unknown [id number] 2.16.840.1.072360.3.579.2.9 1990 Unknown [id number] 2.16.840.1.260935.3.579.2.9 1990 Unknown [id number] 2.16.840.1.421942.3.579.2.1258 1990 Unknown [id number] 2.16.840.1.638810.3.579.2.9 1990 Unknown [id number] 2.16.840.1.298777.3.579.2.1258 1990 Unknown [id number] 2.16.840.1.265878.3.579.2.9 1990 Unknown [id number] 2.16.840.1.495196.3.579.2.9 1959 Self-pay [id number] 1959 Self-pay Social History Date Type Detail Facility Start: 07-11-2023 Tobacco smoking stat [facility] Never smoked tobacco [facility] Start: [...] Problems Past Medical History: Diagnosis Date Asthma ([facility]) Family History Problem Relation Name Age of [...] [facility] DATE CREATED AUTHOR AUTHOR'S ORGANIZ ATION 11/20/2023 [facility] d[facility] Special[facility] EPIC Reason for Visit [...] BE BASED ON THE PRIMARY CLINICAL RECORDS. [facility] [employer] [facility]. provides no warranty or guarantee of the accuracy or completeness of information in this document.
[2023-11-21 23:27] VITALS: BP 122/74; PULSE 81; TEMP 36.6
[2023-11-21 23:50] LABS: Bilirubin Urine NEGATIVE (NEGATIVE); Blood Urine MODERATE (NEGATIVE); Clarity Urine CLEAR (CLEAR); Color Urine YELLOW (YELLOW); Glucose Urine UA NEGATIVE (NEGATIVE); Ketones Urine 15 mg/dL (NEGATIVE); Leukocyte Esterase Urine TRACE (NEGATIVE); Nitrite Urine NEGATIVE (NEGATIVE); Protein Urine NEGATIVE (NEG/TRACE); Specific Gravity Urine 1.025 (1.005-1.025); pH Urine 6.5 (5.0-9.0)
[2023-11-21 23:52] LABS: Urine Microscopic Indicated YES
[2023-11-21 23:59] LABS: Bacteria Urine MODERATE #/HPF (NONE SEEN); Cast Seen? NONE SEEN #/LPF (NONE SEEN); Crystals Seen? None Seen #/HPF (None Seen); Mucus Urine NONE SEEN (NONE SEEN); RBC Urine 0-2 #/HPF (0-2); Squamous Epithelial Cell Urine FEW #/LPF (NONE/RARE); Urine Culture Indicated YES
[2023-11-22] VITALS (10 sets, daily range): BP systolic 130–154; BP diastolic 61–90; PULSE 58–75
--- NOTE | 2023-11-22 01:49 | PC.NURSE ---
Pt desires to go home. Reports she has only felt 2 contractions in 45 mins time.
[2023-11-22] MEDS: GLYCERIN/WITCH HAZEL PADS 1 PAD TOPICAL (08:10)
[2023-11-22] MEDS: ACETAMINOPHEN 325 MG TABLET 650 MG PO (08:10)
[2023-11-22] MEDS: BENZOCAINE/MENTHOL 85 GRAM SPRAY BOTTLE 1 APPLIC TOPICAL (08:10)
[2023-11-22] MEDS: IBUPROFEN 600 MG TABLET PO (08:11)
[2023-11-23 06:01] LABS: Basophils Percent Auto 0.3 % (0.2-2.0); Eosinophils Absolute Auto 0.1 10^3/uL (0.0-0.7); Eosinophils Percent Auto 0.6 % (0.9-7.0); Hematocrit 35.7 % (36.0-48.0); Hemoglobin 11.9 g/dL (12.0-16.0); Immature Granulocytes Abs Auto 0.05 10^3/uL (0.00-0.03); Immature Granulocytes Pct Auto 0.5 % (0.0-0.5); Lymphocytes Absolute Auto 1.5 10^3/uL (1.2-3.8); Lymphocytes Percent Auto 14.7 % (20.5-60.0); Mean Corpuscular HGB Conc 33.3 g/dL (29.9-35.2); Mean Corpuscular Hemoglobin 32.9 pg (26.7-34.0); Mean Corpuscular Volume 98.6 fL (81.0-99.0); Mean Platelet Volume 10.3 fL (9.5-13.5); Monocytes Absolute Auto 0.5 10^3/uL (0.3-0.8); Monocytes Percent Auto 4.9 % (1.7-12.0); Neutrophils Absolute Auto 7.9 10^3/uL (1.4-6.5); Platelet Count 224 10^3/uL (150-450); Red Blood Count 3.62 10^6/uL (4.20-5.40); Red Cell Distribution Width 12.8 % (11.0-15.0)
--- NOTE | 2023-11-24 08:01 | PC.NURSE ---
Late Entry: This RN called Dr. Monsalve at approx. 0150. Reported maternal and status and Pt's desire to leave because she is not feeling CTX at this time and has only had 2 in 45 mins. Discharge orders recv'd. Pt Discharged @ 0200 in good condition to home. JENNYFER, RN
== END 2023-11-22 02:30 | disposition home or self-care (01) ==
PROVIDERS: Admitting Provider Obstetrics & Gynecology; Visit Provider Obstetrics & Gynecology
DX: O47.1 False labor at or after 37 completed weeks of gestation (principal); Z3A.38 38 weeks gestation of pregnancy
CPT/HCPCS: 36415; 81001; 85025; 87086; G0378; G0379

== ENCOUNTER 2023-11-22 06:30 | Inpatient (IN) | payer MEDICAID, SELFPAY ==
[2023-11-22] VITALS (8 sets, daily range): BP systolic 132–162; BP diastolic 77–92; PULSE 54–66; RESP 14–16; TEMP 35.9–37.3
--- NOTE | 2023-11-22 07:08 | P.OBPRC_ITS ---
Procedure Intrapartal events: None Induction method: none Delivery monitor: external FHT and external uterine Route of delivery: Episiotomy Description: none L&D Laceration Description: none Estimated blood loss (mL): 200 Anesthesia type: None Disposition: floor Infant Delivery date: 11/22/23 Gender: female presentation: vertex Placental delivery description: Spontaneous cord description: 3 Vessels
--- OUTSIDE RECORDS SUMMARY | 2023-11-22 11:29 | XMS_ITS | CCD ---
Author Name Unknown Address [address] [place] [address] [place] [id number] Organization [facility] Care Team Providers Care Svp Marketing Name Role Phone ETHAN SIMMONS Primary Care [...] UA Negative Negative - 4(70) +++ mg/dL [facility] Blood, UA Negative Negative - 50 Junior/mcL [facility] Clarity, UA Clear [facility] Health[facility] re Color, UA Yellow [facility] Healthcar e Glucose, UA Negative Negative - 1999(110) ++++ mg/dL [facility] Interpretation and review of laboratory results Abnormal [facility] Ketones, UA Negative Negative - 160(16) ++++ mg/dL [facility] Leukocytes, UA Negative Negative - 500+++ Juli/mcL [facility] Nitrite, UA Negative Negative - Positive [facility] pH, UA 7.0 5 - 9 [facility] Healthcar e Protein, UA Trace Negative - 2000(20) ++++ mg/dL [facility] Spec Grav, UA 1.025 1 - 1.03 [facility] care Urobilinogen, UA 1.0 0.2 - 12 mg/dL [facility] POINT OF CARE GLUCOSEon 04-15 Glucose [Mass/Vol] 108 mg/dL Critically high 74-106 [facility] Comment on above: Performed By: #### P OCGLUC #### [facility] [address] [address] Ney Ayon XR FOOT ANGELA MIN 3 VIEWSon Bilirubin [Mass/Vol] Patient: DANA JONES Exam Date: 04/30/2019 : 1990 Gender:F Ordering : DR. FLETCHER MEI D.O. Admission #: [id number] Family : Order #: [id number] CLICK HERE TO VIEW EXAM RADIOLOGY REPORT [...] Taveras M.D. on 04/30/2019 at 08:30 Normal [facility] Vital Signs Date Time Vital Sign Value Performing Clinician Faci lity 10-22-2023 15:07-0500 Body mass index (BMI) [Ratio] 32.75 kg/m2 Crys BUSTAMANTE Work Phone: [facility] 10-22-2023 15:07-0500 Body weight 89.27 kg Crys BUSTAMANTE Work Phone: [facility] 10-22-2023 15:07-0500 Diastolic blood pressure 60 mm[Hg] Crys BUSTAMANTE Work Phone: [facility] 10-22-2023 15:07-0500 Systolic blood pressure 120 mm[Hg] Crys BUSTAMANTE Work Phone: [facility] Healthcare Encounters Encounter Date Encounter Type [...] Payer Medicaid [employer] [employer] [place] [id number] 2023-Present [address] [address] [place] [address] [id number] [id number] 2023 Medicaid [id number] 1990 Unknown [id number] 2.840.1.838420.3.579.2.593 1990 Unknown [id number] 10.31.830.1.382666.3.579.2.593 1990 Unknown [id number] 2.840.1.120533.3.579.2.593 1990 Unknown [id number] 2.16.840.1.266783.3.579.2.9 1990 Unknown [id number] 2.16.840.1.417104.3.579.2.9 1990 Unknown [id number] 2.16.840.1.774668.3.579.2.9 1990 Unknown [id number] 2.16.840.1.406076.3.579.2.1258 1990 Unknown [id number] 2.16.840.1.206098.3.579.2.9 1990 Unknown [id number] 2.16.840.1.263669.3.579.2.1258 1990 Unknown [id number] 2.16.840.1.758869.3.579.2.9 1990 Unknown [id number] 2.16.840.1.681397.3.579.2.9 1959 Self-pay [id number] 1959 Self-pay Social History Date Type Detail Facility Start: 07-11-2023 Tobacco smoking stat [facility] Never smoked tobacco [facility] Start: [...] Problems Past Medical History: Diagnosis Date Asthma ([facility]) Family History Problem Relation Name Age of [...] DATE CREATED AUTHOR AUTHOR'S ORGANIZ ATION 11/20/2023 [facility] Special[facility] EPIC Reason for Visit [...] BE BASED ON THE PRIMARY CLINICAL RECORDS. [facility] [employer] [facility]. provides no warranty or guarantee of the accuracy or completeness of information in this document.
--- NOTE | 2023-11-22 12:01 | PC.NURSE ---
Patient presents to unit on 11/21/2023 for Magnus Serna RN around 2330. No cervical change overnight. Patient discharged home per physicians orders around 0200. Patient presents back to ER on 11/22/2023 at 0645 laboring. Patient sent to [facility]. Registration places patient back under same visit ID ( number) as admission on 11/21/2023. All labor and recovery charting can be found under prior visit. Notes/charting completed under that visit for new admission printed and placed in patient chart to be sent down to medical records. To refer to charting, please see notes under visit [id number] or notes sent to medical records.
[2023-11-22 12:19] LABS: Amphetamine Screen Urine NEGATIVE (NEGATIVE); Barbiturates Screen Urine NEGATIVE (NEGATIVE); Benzodiazepines Screen Urine NEGATIVE (NEGATIVE); Buprenorphine Screen Urine NEGATIVE (NEGATIVE); Cannabinoid Screen Urine POSITIVE (NEGATIVE); Cocaine Screen Urine NEGATIVE (NEGATIVE); Methadone Screen Urine NEGATIVE (NEGATIVE); Methamphetamines Screen Urine NEGATIVE (NEGATIVE); Opiate Screen Urine NEGATIVE (NEGATIVE); Oxycodone Screen Urine NEGATIVE (NEGATIVE); Phencyclidine Screen Urine NEGATIVE (NEGATIVE); Tricyclic Antidepressant Urine NEGATIVE (NEGATIVE)
[2023-11-22] MEDS: ACETAMINOPHEN 325 MG TABLET 650 MG PO (23:40)
[2023-11-23 07:37] VITALS: BP 136/75; PULSE 60
[2023-11-23 07:40] VITALS: PULSE 60; RESP 16; TEMP 36.5
[2023-11-23] MEDS: DOCUSATE SODIUM 100 MG CAPSULE PO (08:56)
--- NOTE | 2023-11-23 10:56 | P.OBPN_ITS ---
OB - PN: Subj Subjective Patient comments: no complaints [place] status: doing well feeding status: exclusively bottle feeding Exam Constitutional Vital Signs, click to edit/add: Last Vital Signs Temp 97.7 F 11/23/23 07:40 Pulse 60 11/23/23 07:40 Resp 16 11/23/23 07:40 BP 136/75 11/23/23 07:37 O2 Del Method Room Air 11/23/23 07:40 Documenting provider has reviewed patient's vital signs: yes Common normals: no apparent distress and oriented x3 HENMT Common normals: normocephalic Eye Common normals: EOMs intact bilaterally General eye: normal appearance of both eyes Neck & C-Spine Common normals: full ROM and no JVD Lymph Lymphatic: no lymphadenopathy noted Chest Common normals: inspection of chest normal Respiratory Common normals: normal respiratory effort, no retractions, no use of accessory muscles and clear to auscultation bilaterally Cardio Common normals: regular rhythm Rate: regular rate Rhythm: regular rhythm GI Common normals: Normal to inspection, nondistended, normoactive bowel sounds present Common normals: no CVA tenderness Back & Pelvis Common normals: no CVA tenderness Extremity Common normals: normal to inspection Neuro Common normals: oriented x3 Sensorium/orientation: awake, alert, oriented to person, oriented to place and oriented to time Psych Common normals: mental status grossly normal, thought process normal, cooperative, affect normal and speech normal Attitude: calm Thought process: normal thought process OB - PN: A/P Plan - Vaginal Delivery day: 1 Plan: discharge home Time Spent with Patient Time: Total time spent is greater than 50% in coordination of care (as documented) at patient's floor/unit and/or counseling patient: Total time spent with greater than 50% in coordination of care (as documented) at patient's floor/unit and/or counseling patient: less than 15 minutes
--- OUTSIDE RECORDS SUMMARY | 2023-11-24 08:35 | XMS_ITS | CCD ---
Author Name Unknown Address [address] [place] [address] [place] [id number] Organization [facility] Care Team Providers Care Manager Scheduling Name Role Phone ETHAN SIMMONS Primary Care [...] UA Negative Negative - 4(70) +++ mg/dL [facility] Blood, UA Negative Negative - 50 Junior/mcL [facility] Clarity, UA Clear [facility] Healthnm re Color, UA Yellow [facility] Healthcar e Glucose, UA Negative Negative - 1999(110) ++++ mg/dL [facility] Interpretation and review of laboratory results Abnormal [facility] Ketones, UA Negative Negative - 160(16) ++++ mg/dL [facility] Leukocytes, UA Negative Negative - 500+++ Juli/mcL [facility] Nitrite, UA Negative Negative - Positive [facility] pH, UA 7.0 5 - 9 [facility] Healthcar e Protein, UA Trace Negative - 2000(20) ++++ mg/dL [facility] Spec Grav, UA 1.025 1 - 1.03 [facility] care Urobilinogen, UA 1.0 0.2 - 12 mg/dL [facility] POINT OF CARE GLUCOSEon 04-15 Glucose [Mass/Vol] 108 mg/dL Critically high 74-106 [facility] Comment on above: Performed By: #### P OCGLUC #### [facility] [address] [address] Ney Ayon XR FOOT ANGELA MIN 3 VIEWSon Bilirubin [Mass/Vol] Patient: DANA JONES Exam Date: 04/30/2019 : 1990 Gender:F Ordering : DR. FLETCHER EMI D.O. Admission #: [id number] Family : Order #: [id number] CLICK HERE TO VIEW EXAM RADIOLOGY REPORT [...] Taveras M.D. on 04/30/2019 at 08:30 Normal [facility] Vital Signs Date Time Vital Sign Value Performing Clinician Faci lity 10-22-2023 15:07-0500 Body mass index (BMI) [Ratio] 32.75 kg/m2 Crys BUSTAMANTE Work Phone: [facility] 10-22-2023 15:07-0500 Body weight 89.27 kg Crys BUSTAMANTE Work Phone: [facility] 10-22-2023 15:07-0500 Diastolic blood pressure 60 mm[Hg] Crys BUSTAMANTE Work Phone: [facility] 10-22-2023 15:07-0500 Systolic blood pressure 120 mm[Hg] Crys BUSTAMANTE Work Phone: [facility] Healthcare Encounters Encounter Date Encounter Type Care [...] Payer Medicaid [employer] [place] [employer] [place] [id number] 2023-Present [address] [address] [place] [address] [id number] 2023 Medicaid [id number] 1990 Unknown [id number] 1990 Unknown [id number] 1990 Unknown [id number] [id number] 1990 Unknown [id number] 2.16.840.1.163732.3.579.2.9 1990 Unknown [id number] 2.16.840.1.801233.3.579.2.9 1990 Unknown [id number] 2.16.840.1.022575.3.579.2.9 1990 Unknown [id number] 2.16.840.1.146082.3.579.2.1258 1990 Unknown [id number] 2.16.840.1.201167.3.579.2.9 1990 Unknown [id number] 2.16.840.1.226152.3.579.2.1258 1990 Unknown [id number] 2.16.840.1.298777.3.579.2.9 1990 Unknown [id number] 2.16.840.1.827408.3.579.2.9 1959 Self-pay [id number] 1959 Self-pay Social History Date Type Detail Facility Start: 07-11-2023 Tobacco smoking stat [facility] Never smoked tobacco [facility] Start: 10-22-2023 [...] Problems Past Medical History: Diagnosis Date Asthma ([facility]) Family History Problem Relation Name Age [...] DATE CREATED AUTHOR AUTHOR'S ORGANIZ ATION 11/20/2023 [facility] dical Specialists EPIC Reason for Visit (unrecogniz [...] BE BASED ON THE PRIMARY CLINICAL RECORDS. [facility] provides no warranty or guarantee of the accuracy or completeness of information in this document.
[2023-11-29 14:12] LABS: Cannabinoid Positive (.); Carboxy THC Conf, MS, UR 299 ng/mL (Cutoff=10)
== END 2023-11-23 12:45 | disposition home or self-care (01) | DRG 560 ==
PROVIDERS: Admitting Provider Obstetrics & Gynecology; Visit Provider Obstetrics & Gynecology
DX: O80 Encounter for full-term uncomplicated delivery (principal); Z3A.39 39 weeks gestation of pregnancy; Z37.0 Single live birth
CPT/HCPCS: 36415; 59050; 59410; 80307; 80349; 81001; 85025; 87086; 96374; G0378; G0379

== ENCOUNTER 2025-06-04 18:52 | Emergency (ER) | payer SELFPAY ==
--- OUTSIDE RECORDS SUMMARY | 2025-06-04 19:00 | XMS_ITS | Encounter Summary ---
Author Organization [facility] Address [address] [place] [address] Care Team Providers Care Glue Size Machine Operator Name Role Phone Unavailable Primary Care Provider Unavailabl e Encounter Details Date Type Department Care Team (Late st Contact Info) Description 07/24/2023 [facility] Result Encounter [facility] External Department Unsolicited Sara Monsalve, DO [address] [facility] [place] [address] Social History Tobacco Use Types Packs/Day Years Used Date Smoking Tobacco: Never Alcohol Use Standard Drinks/Week Comments Never 0 (1 standard drink = 0.6 oz pur e alcohol) Comments Yes Sex and Gender Information Value Date Recorded Sex Assigned at Not on file Legal Sex Female 6:43 PM EDT Gender Identity Not on file Sexual Orientation Not on file documented as of this encounter Plan of Treatment Not on file documented as of this encounter Procedures Procedure Name Priority Date/Time Associated Diagnosis Comments US OB CERVICAL LENGTH 07/24/2023 10:37 PM EST documented in this encounter Results * US OB CERVICAL LENGTH (07/24/2023 10:37 PM EST) Anatomical Region Laterality Modality Other 07/24/2023 10:3 7 PM EST Narrative 07/24/2023 10:37 PM EST The [address] [address] Ultrasound Report Signed Patient: ANNA JONES MR#: [id number] : 1990 Acct:[id number] Age/Sex: 32 / F ADM Date: 07/24/23 Loc: US Attending Dr: Sara Monsalve D.O. Ordering Physician: Sara Monsalve D.O. Date of Service: 07/24/23 Procedure(s): US OB cervical length Accession Number(s): [id number] cc: Sara Monsalve D.O.; Physician,Non-Staff Lj [address] [address] Patient Name: ANNA JONES MRN: [facility]:[id number] date: 1990 Sex: F Assigned Patient Location: US Current Patient Location: US Accession/Order Number: [id number] Exam Date: 07/24/2023 08:48 Report Date: 07/24/2023 22:37 At the request of: SARA MONSALVE Procedure: US OB cervical length EXAMINATION: US OB anatomy, US OB cervical length HISTORY: ANATOMY COMPARISON: No relevant comparison available. TECHNIQUE: Transabdominal sonographic examination was performed for obstetrical and evaluation. FINDINGS: Number: 1 Heart Rate: 145.0 bpm H.B. /min Amniotic Fluid Volume: Subjectively normal Placental Location: POSTERIOR with lower margin 3.9 cm from os Cervix Length: 4.4 cm; closed. ANATOMY: Normal Structures -cerebellum, choroid plexus, cisterna magna, lateral cerebral ventricles, orbits, midline falx, hard palate, four-chamber heart, RVOT, LVOT, stomach, kidneys, bladder, umbilical cord insertion into abdomen, three-vessel cord, cervical spine, thoracic spine, lumbar spine, sacral spine, right upper extremity, left upper extremity, right lower extremity, left lower extremity. SUBOPTIMALLY SEEN: None ABNORMALITIES: None BIOMETRY: BPD: 4.6 cm 19 weeks 5 days ; < 3% HC: 18.0 cm 20 weeks 3 days; 3% AC: 16.3 cm 21 weeks 3 days; 32% FL: 3.6 cm 21 weeks 2 days ; 25% EFW:405.2 grams; 20% FL/AC: 21.8 FL/BPD: 78.2 HC/AC: 1.1 GESTATIONAL AGE: Age by EDC: 21 weeks 5 days NINOSKA by EDC: 11/29/2023 Age by current US: 20 weeks 5 days NINOSKA by current US: 12/06/2023 US/US OB cervical length IMPRESSION: 1. Single live intrauterine with growth detailed above. 2. BPD and HC are < or equal to 3rd percentile. Electronically authenticated by: JOVANY TAVERAS Date: 07/24/2023 22:37 Dictated By: Jovany Taveras M.D. Signed By: 07/24/232239 DD/ 36 TD/TT: Dump Grounds Checker: Procedure Note Radiology, Radiologist, MD - 07/24/2023 [place] [address] Ultrasound Report Signed Patient: ANNA JONES MMR#: [id number] : 1990Acct:[id number] Age/Sex: 32 / FADM Date: 07/24/23 Loc: US Attending Dr: Sara Monsalve D.O. Ordering Physician: Sara Monsalve D.O. Date of Service: 07/24/23 Procedure(s): US OB cervical length Accession Number(s): [id number] cc: Sara Monsalve D.O.; Physician,Non-Staff Lj The [address] [id number] Patient Name: ANNA JONES MRN: [id number]:[id number] date: 1990 Sex: F Assigned Patient Location: US Current Patient Location: US Accession/Order Number: [id number] Exam Date: 07/24/2023 08:48 Report Date: 07/24/2023 22:37 At the request of: SARA MONSALVE Procedure: US OB cervical length EXAMINATION: US OB anatomy, US OB cervical length HISTORY: ANATOMY COMPARISON: No relevant comparison available. TECHNIQUE: Transabdominal sonographic examination was performed for obstetrical and evaluation. FINDINGS: Number: 1 Heart Rate: 145.0 bpm H.B. /min Amniotic Fluid Volume: Subjectively normal Placental Location: POSTERIOR with lower margin 3.9 cm from os Cervix Length: 4.4 cm; closed. ANATOMY: Normal Structures -cerebellum, choroid plexus, cisterna magna, lateral cerebral ventricles, orbits, midline falx, hard palate, four-chamberheart, RVOT, LVOT, stomach, kidneys, bladder, umbilical cord insertion intoabdomen, three-vessel cord, cervical spine, thoracic spine, lumbar spine, sacralspine, right upper extremity, left upper extremity, right lower extremity, leftlower extremity. SUBOPTIMALLY SEEN: None ABNORMALITIES: None BIOMETRY: BPD: 4.6 cm 19 weeks 5 days ; < 3% HC: 18.0 cm 20 weeks 3 days; 3% AC: 16.3 cm 21 weeks 3 days; 32% FL: 3.6 cm 21 weeks 2 days ; 25% EFW:405.2 grams; 20% FL/AC: 21.8 FL/BPD: 78.2 HC/AC: 1.1 GESTATIONAL AGE: Age by EDC: 21 weeks 5 days NINOSKA by EDC: 11/29/2023 Age by current US: 20 weeks 5 days NINOSKA by current US: 12/06/2023 US/US OB cervical length IMPRESSION: 1. Single live intrauterine with growth detailed above. 2. BPD and HC are < or equal to 3rd percentile. Electronically authenticated by: JOVANY TAVERAS Date: 07/24/2023 22:37 Dictated By: Jovany Taveras M.D. Signed By:07/24/232239 DD/ 36 TD/TT: Dump Grounds Checker: Sara Monsalve DO [facility] Final Result documented in this encounter Visit Diagnoses Not on filedocumented in this encounter
--- OUTSIDE RECORDS SUMMARY | 2025-06-04 19:00 | XMS_ITS | Encounter Summary ---
Author Organization [facility] Address [address] [place] [address] Care Team Providers Care Medical Certification Specialist Name Role Phone Unavailable Primary Care Provider Unavailabl e Encounter Details Date Type Department Care Team (Late st Contact Info) Description 11/22/2023 Abstract [facility] [address] [place] [address] [place] [address] Harika Alberts LPN Social History Tobacco Use Types Packs/Day Years [...] on file documented as of this encounter Visit Diagnoses Not on filedocumented in this encounter
--- OUTSIDE RECORDS SUMMARY | 2025-06-04 19:00 | XMS_ITS | Clinical Summary ---
Author Organization [facility] Address [address] [place] [address] Care Team Providers Care Plate Put In Worker Name Role Phone Unavailable Primary Care Provider Unavailabl e Allergies No known active allergies Medications promethazine (Phenergan) 25 MG tablet TAKE 1 TABLET 4 TIMES A DAY NEEDED 3 Active MV-Min-Fe Fum-FA-DHA ( 1 PO) Take by mouth. Active metoclopramide (Reglan) 10 MG tabletIndications:N ausea Take 1 tablet (10 mg) by mouth in the morning and 1 tablet (10 mg) at noon and 1 tablet (10 mg) in the evening. Take before meals. Take 1 tablet by mouth 30 minutes prior to meals 3 times daily as needed for nausea.. 90 tablet 2 4 Active ondansetron ODT (Zofran-ODT) 4 MG disintegrating tabletIndications:N ausea DISSOLVE 1 TABLET ON THE TONGUE EVERY 6 HOURS NEEDED FOR NAUSEA 20 tablet 3 4 Active Family History Medical History Relation Name Comments Kidney failure Mother Pyloric stenosis Nephew Relation Name Status Comments Father Alive Mother Nephew Other Social History Tobacco Use Types Packs/Day Years Used Date Smoking Tobacco: Never Tobacco Cessation:Counseling Given: Not Answered Alcohol Use Standard Drinks/Week Comments Never 0 (1 standard drink = 0.6 oz pur e alcohol) Comments No Sex and Gender Information Value Date Recorded Sex Assigned at Not on file Legal Sex Female 6:43 PM EDT Gender Identity Not on file Sexual Orientation Not on file Last Filed Vital Signs Vital Sign Reading Time Taken Comments Blood Pressure 122/70 11/19/2023 3:17 PM EST Pulse - - Temperature - - Respiratory Rate - - Oxygen Saturation - - Inhaled Oxygen Concentration - - Weight 91.6 kg (202 lb) 11/19/2023 3:17 PM EST Height 165.1 cm (5' 5 ) 02/18/2022 12:00 PM EDT Body Mass Index 33.61 02/18/2022 12:00 PM EDT Plan of Treatment Not on file Insurance [employer] [place]
--- OUTSIDE RECORDS SUMMARY | 2025-06-04 19:00 | XMS_ITS | Encounter Summary ---
Author Organization [facility] Address [address] [place] [address] Care Team Providers Care Storage Battery Inspector And Tester Name Role Phone Unavailable Primary Care Provider Unavailabl e Encounter Details Date Type Department Care Team (Late st Contact Info) Description 06/26/2023 [facility] Result Encounter [facility] External Department Unsolicited Sara Monsalve, DO [address] [facility] [place] [address] Social History Tobacco Use Types Packs/Day Years Used Date Smoking Tobacco: Never Assessed Comments Yes Sex and Gender Information Value Date Recorded Sex Assigned at Not on file Legal Sex Female 6:43 PM EDT Gender Identity Not on file Sexual Orientation Not on file documented as of this encounter Plan of Treatment Not on file documented as of this encounter Procedures Procedure Name Priority Date/Time Associated Diagnosis Comments US OB G= 14 WEEKS FETUS 06/26/2023 5:24 PM EDT documented in this encounter Results * US OB G= 14 WEEKS FETUS (06/26/2023 5:24 PM EDT) Anatomical Region Laterality Modality Other 06/26/2023 5:24 PM EDT Narrative 06/26/2023 5:24 PM EDT The [address] [address] Ultrasound Report Signed Patient: ANNA JONES MR#: [id number] : 1990 Acct:[id number] Age/Sex: 32 / F ADM Date: 06/26/23 Loc: US Attending Dr: Sara Monsalve D.O. Ordering Physician: Sara Monsalve D.O. Date of Service: 06/26/23 Procedure(s): US OB >= 14 weeks Fetus Accession Number(s): [id number] cc: Sara Monsalve D.O.; Physician,Non-Staff Lj [address] [address] Patient Name: ANNA JONES MRN: [id number] date: 1990 Sex: F Assigned Patient Location: US Current Patient Location: US Accession/Order Number: [id number] Exam Date: 06/26/2023 12:30 Report Date: 06/26/2023 17:24 At the request of: SARA MONSALVE Procedure: US OB >= 14 weeks Fetus EXAMINATION: US OB >= 14 weeks Fetus HISTORY: MISSED MENSES COMPARISON: No relevant comparison available. FINDINGS: Heart Rate: 144.0 bpm Number: 1.0 Amniotic Fluid Volume: Subjectively normal BIOMETRY: BPD: 3.9 cm cm; 18 weeks 0 days HC: 14.2 cmcm; 17 weeks 3 days AC: 12.2 cm cm; 17 weeks 6 days FL: 2.5 cm cm; 17 weeks 3 days EFW: 203.7 grams FL/AC: 20.2 FL/BPD: 62.6 HC/AC: 1.2 GESTATIONAL AGE: Age by EDC: Unknown LMP NINOSKA by EDC: Age by US: 17 weeks 5 days NINOSKA by US: 11/29/2023 US/US OB >= 14 weeks Fetus IMPRESSION: 1. Single live intrauterine 17 weeks 5 days by today's ultrasound. Electronically authenticated by: JOVANY TAVERAS Date: 06/26/2023 17:24 Dictated By: Jovany Taveras M.D. Signed By: 06/26/231726 DD/ 23 TD/TT: Contact Lens Inspector: Procedure Note Radiology, Radiologist, - 06/26/2023 [address] [id number] Ultrasound Report Signed Patient: ANNA JONES MMR#: [id number] : 1990Acct:[id number] Age/Sex: 32 / FADM Date: 06/26/23 Loc: US Attending Dr: Sara Monsalve D.O. Ordering Physician: Sara Monsalve D.O. Date of Service: 06/26/23 Procedure(s): US OB >= 14 weeks Fetus Accession Number(s): [id number] cc: Sara Monsalve D.O.; Physician,Non-Staff Lj [address] [address] Patient Name: ANNA JONES MRN: [id number] date: 1990 Sex: F Assigned Patient Location: US Current Patient Location: US Accession/Order Number: [id number] Exam Date: 06/26/2023 12:30 Report Date: 06/26/2023 17:24 At the request of: SARA MONSALVE Procedure: US OB >= 14 weeks Fetus EXAMINATION: US OB >= 14 weeks Fetus HISTORY: MISSED MENSES COMPARISON: No relevant comparison available. FINDINGS: Heart Rate: 144.0 bpm Number: 1.0 Amniotic Fluid Volume: Subjectively normal BIOMETRY: BPD: 3.9 cm cm; 18 weeks 0 days HC: 14.2 cmcm; 17 weeks 3 days AC: 12.2 cm cm; 17 weeks 6 days FL: 2.5 cm cm; 17 weeks 3 days EFW: 203.7 grams FL/AC: 20.2 FL/BPD: 62.6 HC/AC: 1.2 GESTATIONAL AGE: Age by EDC: Unknown LMP NINOSKA by EDC: Age by US: 17 weeks 5 days NINOSKA by US: 11/29/2023 US/US OB >= 14 weeks Fetus IMPRESSION: 1. Single live intrauterine 17 weeks 5 days by benjamin. Electronically authenticated by: JOVANY TAVERAS Date: 06/26/2023 17:24 Dictated By: Jovany Taveras M.D. Signed By:06/26/231726 DD/ 23 TD/TT: Contact Lens Inspector: Sara Monsalve DO [facility] Final Result documented in this encounter Visit Diagnoses Not on filedocumented in this encounter
--- OUTSIDE RECORDS SUMMARY | 2025-06-04 19:00 | XMS_ITS | Patient Health Record ---
Author Organization [facility] Address [address] [facility] [place] [address] Care Team Providers Care Plastic Parts Designer Name Role Phone CHADWICKMarquita Nany Primary Care Provider [phone] Reason For Referral No Information Medications Medication SIG (Take, Route, Frequency, Duration) Notes Start Date End Date Status Citalopram Hydrobromide 20 MG 1 tablet Orally Once a day; Duration: 30 day(s) 07/18/2011 Active Plan Of Treatment No Information Insurance Providers Payer Name Payer Address Payer Phone Subscriber Number Group Number Insured Name Patient Relationship to Insured Coverage Start Date Coverage End Date [place] [address] [place] [address] [id number] DANA PINO Self - patient is the insured XXXSELF PAY DANA PINO Self - patient is the insured Medical (General) History Surgical History Surgery Date(Month/Year) umbilical hernia repair [place]
--- OUTSIDE RECORDS SUMMARY | 2025-06-04 19:00 | XMS_ITS | Encounter Summary ---
Author Organization [facility] Address [address] [place] [address] Care Team Providers Care Coat Room Attendant Name Role Phone Unavailable Primary Care Provider Unavailabl e Encounter Details Date Type Department Care Team (Late st Contact Info) Description 10/22/2023 Clinisync Result Encounter [facility] External Department Unsolicited Sara Monsalve, DO [address] [facility] [place] [address] Social History Tobacco Use Types [...] Procedure Name Priority Date/Time Associated Diagnosis Comments OB GROWTH 10/22/2023 4:08 PM EST documented in this encounter Results * US OB GROWTH (10/22/2023 4:08 PM EST) Anatomical Region Laterality Modality Other 10/22/2023 4:08 PM EST Narrative 10/22/2023 4:11 PM EST The [address] [address] Ultrasound Report Signed Patient: ANNA JONES MR#: [id number] : 1990 Acct:[id number] Age/Sex: 33 / F ADM Date: 10/22/23 Loc: [facility] Attending Dr: Sara Monsalve D.O. Ordering Physician: Sara Monsalve D.O. Date of Service: 10/22/23 Procedure(s): US OB growth Accession Number(s): [id number] cc: Sara Monsalve D.O.; Physician,Non-Staff Lj The [place] [address] Patient Name: ANNA JONES MRN: [id number] date: 1990 Sex: F Assigned Patient Location: [facility] Current Patient Location: [facility] Accession/Order Number: [id number] Exam Date: 10/22/2023 14:36 Report Date: 10/22/2023 16:08 At the request of: SARA MONSALVE Procedure: US OB growth EXAMINATION: US OB growth HISTORY: LGA COMPARISON: 07/24/2023 FINDINGS: Heart Rate: 127.0 bpm Amniotic Fluid Volume: 10.9 cm Number: 1.0 Position: Cephalic presentation, longitudinal lie Maximum Vertical Pocket: 2.2 cm cm 2.6 cm cm 4.4 cm cm 1.7 cm cm BIOMETRY: BPD: 8.5 cm cm; 34 weeks 0 days; 34% HC: 29.9 cmcm; 33 weeks 1 days < 3% AC: 30.0 cm cm; 34 weeks 0 days, 36% FL: 6.7 cm cm; 34 weeks 3 days; 38.4 % % EFW: 2327.3 grams FL/AC: 22.4 FL/BPD: 79.3 HC/AC: 1.0 GESTATIONAL AGE: Age by EDC: 34 weeks 4 days NINOSKA by EDC: 11/29/2023 Age by US: 33 weeks 6 days NINOSKA by US: 12/04/2023 US/US OB growth IMPRESSION: Head circumference less than the 3rd percentile, otherwise normal interval growth Electronically authenticated by: CARLOS MAZARIEGOS Date: 10/22/2023 16:08 Dictated By: Carlos Mazariegos M.D. Signed By: 10/22/23 1611 DD/ 1608 TD/TT: Associate Director: Procedure Note Radiology, Radiologist, - 10/22/2023 [place] [address] Ultrasound Report Signed Patient: ANNA JONES MMR#: [id number] : 1990Acct:[id number] Age/Sex: 33 / FADM Date: 10/22/23 Loc: [facility] Attending Dr: Sara Monsalve D.O. Ordering Physician: Sara Monsalve D.O. Date of Service: 10/22/23 Procedure(s): US OB growth Accession Number(s): [id number] cc: Sara Monsalve D.O.; Physician,Non-Staff Lj [place] [address] Patient Name: ANNA JONES MRN: [id number] date: 1990 Sex: F Assigned Patient Location: [facility] Current Patient Location: [facility] Accession/Order Number: [id number] Exam Date: 10/22/2023 14:36 Report Date: 10/22/2023 16:08 At the request of: SARA MONSALVE Procedure: US OB growth EXAMINATION: US OB growth HISTORY: LGA COMPARISON: 07/24/2023 FINDINGS: Heart Rate: 127.0 bpm Amniotic Fluid Volume: 10.9 cm Number: 1.0 Position: Cephalic presentation, longitudinal lie Maximum Vertical Pocket: 2.2 cm cm 2.6 cm cm 4.4 cm cm 1.7 cm cm BIOMETRY: BPD: 8.5 cm cm; 34 weeks 0 days; 34% HC: 29.9 cmcm; 33 weeks 1 days < 3% AC: 30.0 cm cm; 34 weeks 0 days, 36% FL: 6.7 cm cm; 34 weeks 3 days; 38.4 % % EFW: 2327.3 grams FL/AC: 22.4 FL/BPD: 79.3 HC/AC: 1.0 GESTATIONAL AGE: Age by EDC: 34 weeks 4 days NINOSKA by EDC: 11/29/2023 Age by US: 33 weeks 6 days NINOSKA by US: 12/04/2023 US/US OB growth IMPRESSION: Head circumference less than the 3rd percentile, otherwise normal interval growth Electronically authenticated by: CARLOS MAZARIEGOS Date: 10/22/2023 16:08 Dictated By: Carlos Mazariegos M.D. Signed By:10/22/23 1611 DD/ 1608 TD/TT: Associate Director: us Sara Monsalve DO [facility] Final Result documented in this encounter Visit Diagnoses Not on filedocumented in this encounter
--- OUTSIDE RECORDS SUMMARY | 2025-06-04 19:01 | XMS_ITS | CCD ---
Author Organization [facility] Inform ion [facility] Care Team Providers Care Sugar Coating Hand Name Role Phone ETHAN SIMMONS Primary Care Unavailable EARNESTINE WAKEFIELD Admitting Unavailable ASHU, EARNESTINE Fleming Attending Unavailable ASHU, EARNESTINE Fleming Consulting Unavailable ETHAN SIMMONS Primary Care Unavailable PAY, KALI Admitting Unavailable PAY, KALI Attending Unavailable PAY, KALI Consulting Unavailable LE, FLETCHER Admitting Unavailable LE, FLETCHER Attending Unavailable REQUEST, NONE LISTED Primary Care Unavailable JOVANY TAVERAS Consulting Unavailable LE, FLETCHER Consulting Unavailable Unavailable Primary Care Provider [...] UA Negative Negative - 4(70) +++ mg/dL [facility] Blood, UA Negative Negative - 50 Junior/mcL [facility] Clarity, UA Clear [facility] Color, UA Yellow [facility] Glucose, UA Negative Negative - 1999(110) ++++ mg/dL [facility] Interpretation and review of laboratory results Abnormal [facility] Ketones, UA Negative Negative - 160(16) ++++ mg/dL [facility] Leukocytes, UA Negative Negative - 500+++ Juli/mcL [facility] Nitrite, UA Negative Negative - Positive [facility] pH, UA 7.0 5 - 9 [facility] Protein, UA Trace Negative - 2000(20) ++++ mg/dL [facility] Spec Grav, UA 1.025 1 - 1.03 [facility] Urobilinogen, UA 1.0 0.2 - 12 [facility] POINT OF CARE GLUCOSEon 04-15 Glucose [Mass/Vol] 108 mg/dL Critically high 74-106 T [facility] Comment on above: Performed By: #### P OCGLUC #### [facility] [address] [address] Ney Ayon XR FOOT ANGELA MIN 3 VIEWSon Bilirubin [Mass/Vol] Patient: DANA JONES Exam Date: 04/30/2019 : 1990 Gender:F Ordering : DR. FLETCHER MEI D.O. Admission #: [id number] Family : Order #: [id number] CLICK HERE TO VIEW EXAM RADIOLOGY REPORT [...] Jovany Taveras M.D. on 04/30/2019 at 08:30 [facility] Vital Signs Date Time Vital Sign Value Performing Clinician Faci lity 10-22-2023 15:07-0500 Body mass index (BMI) [Ratio] 32.75 kg/m2 Crys BUSTAMANTE Work Phone: [facility] 10-22-2023 15:07-0500 Body weight 89.27 kg Crys BUSTAMANTE Work Phone: [facility] 10-22-2023 15:07-0500 Diastolic blood pressure 60 mm[Hg] Crys BUSTAMANTE Work Phone: [facility] 10-22-2023 15:07-0500 Systolic blood pressure 120 mm[Hg] Crys BUSTAMANTE Work Phone: [facility] Healthcare Encounters Encounter Date Encounter Type [...] Available Start: 09-18-2023 End: 09-18-2023 ambulatory CRYS DERIC Not Available Start: 09-04-2023 End: 09-04-2023 ambulatory CRYS WHITLEYEY Not Available Start: 2023 End: 2023 ambulatory SARA UMM Not Available Start: 04-30-2019 End: 04-30-2019 Patient encounter procedure FLETCHER MEI Facility:[facility] Start: 01-22-2019 End: 01-22-2019 Patient encounter procedure ETHAN SIMMONS Facility:[facility] Start: 12-23-2018 End: 12-23-2018 Patient encounter procedure ETHAN PAVMATILDE Facility:[facility] Procedures Date Procedure Procedure Detail Performing Clinician Start: 10-22-2023 Urnls dip stick/tabl et rgnt non-auto w/o micrscp Crys BUSTAMANTE Work Phone: Payers Date Payer Category Payer Medicaid [employer] [facility] [place]ICAID [place] [employer] [place] [place] [id number] 2023-Present [address] [address] [place] [address] [id number] 2023 Medicaid [id number] 1990 Unknown [id number] 1990 Unknown [id number] 1990 Unknown [id number] [id number] 1990 Unknown [id number] [id number] 1990 Unknown [id number] 2.16.840.1.288966.3.579.2.9 1990 Unknown [id number] 2.16.840.1.944866.3.579.2.9 1990 Unknown [id number] 2.16.840.1.680292.3.579.2.9 1990 Unknown [id number] 2.16.840.1.507188.3.579.2.1258 1990 Unknown [id number] 2.16.840.1.960181.3.579.2.9 1990 Unknown [id number] 2.16.840.1.807034.3.579.2.1258 1990 Unknown [id number] [id number] 1959 Self-pay [id number] 1959 Self-pay Social History Date Type Detail Facility Start: 07-11-2023 Tobacco smoking stat [facility] Never smoked tobacco [facility] Start: 10-22-2023 [...] Problems Past Medical History: Diagnosis Date Asthma ([facility]) Family History Problem Relation Name Age of [...] DATE CREATED AUTHOR AUTHOR'S ORGANIZ ATION 11/20/2023 [facility] EPIC Reason for Visit (unrecogniz ed [...] BE BASED ON THE PRIMARY CLINICAL RECORDS. [employer] provides no warranty or guarantee of the accuracy or completeness of information in this document.
--- NOTE | 2025-06-04 22:43 | ED.GENADUL1 ---
HPI HPI - General Adult General Stated complaint: nausea/vomiting PATIENT IS Time Seen by Provider: 06/04/25 20:44 Related Data Previous Rx's ?Medication ?Instructions ?Recorded ibuprofen 800 mg tablet 800 mg PO Q8H PRN Moderate Pain 11/23/23 #60 tabs Allergies Allergy/AdvReac Type Severity Reaction Status Date / Time No Known Drug Allergies Allergy Verified 05/20/23 18:47 Opioid HPI Opioid Management Most Recent Opioid Data: Last Pain Scale 0 11/22/23, 08:11 Urine Cannabinoids, (.) Positive A 11/23/23, 05:30 Ur Phencyclidine Scrn, (NEGATIVE) Negative 11/21/23, 23:45 PFSH PFSH Medical History (Updated 11/22/23 @ 08:27 by Leta Rubio RN) Congenital umbilical hernia ?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 I never personally saw this patient prior to her departure. Discharge Plan Discharge Patient Disposition: Left Without Being Seen Discharge Date/Time: 06/04/25 20:54
== END 2025-06-04 20:54 | disposition left against medical advice (07) ==
LOC: ER 18:59
PROVIDERS: Emergency Provider Student in an Organized Health Care Education/Training Program
DX: Z53.21 Procedure and treatment not carried out due to patient leaving prior to being seen by health care provider (principal)